=== PATIENT | female | born 1950 | race Caucasian/White ===

== ENCOUNTER 2017-08-18 14:25 | Observation (INO) | payer OTHER ==
[2017-08-18] MEDS: D5 0.9 NS 1,000 ML IV SCH (16:00)
[2017-08-18 16:08] LABS: Potassium 3.6 mEq/L (3.6-5.0)
[2017-08-18 16:09] LABS: Absolute Lymphocytes (CBC) 4.1 K/uL (0.7-4.9); Absolute Monocytes 0.9 K/uL (0.1-1.3); Absolute Neutrophil 7.4 K/uL (1.8-8.0); Basophils % 0.7 % (0-1.3); Eosinophils % 7.7 % (0-4.4); Hematocrit 40.2 % (36.0-45.0); Lymphocytes % 30.3 % (15.3-44.8); MCH 30.7 pg (27.0-35.0); MCV 93.3 fL (80-100); Monocytes % 6.8 % (3.3-12.3); RBC Red Blood Cell Count 4.31 M/uL (3.86-4.86)
[2017-08-18 17:12] VITALS: BMI 35.9
[2017-08-18] MEDS ORDERED: NA CHLORIDE 0.9% 1,000 ML ONE (17:38)
[2017-08-18] MEDS: NA CHLORIDE 0.9% 1,000 ML IV SCH (18:35)
[2017-08-18] MEDS: METRONIDAZOLE 500mg IVPB 500 MG/100 ML BAG IV SCH (18:35)
[2017-08-18] MEDS ORDERED: ATORVASTATIN PO SCH (21:00)
[2017-08-18] MEDS ORDERED: AMLODIPINE PO SCH (21:00)
[2017-08-18] MEDS ORDERED: HOME MED 1 EA UNK (Metoprolol Tartrate [Lopressor] 100 MG) PO SCH (21:00)
[2017-08-18] MEDS: TORSEMIDE 20 MG TAB PO SCH (21:37)
[2017-08-18] MEDS: METOPROLOL TAR 50 MG TAB PO SCH (21:38)
[2017-08-18] MEDS: Ciprofloxacin 200mg IV 200 MG/100 ML IV.SOLN. IV SCH (21:41)
[2017-08-19] MEDS: METRONIDAZOLE 500mg IVPB 500 MG/100 ML BAG IV SCH ×3 (01:03→17:04)
[2017-08-19] MEDS: D5 0.9 NS 1,000 ML IV SCH ×2 (02:36→14:14)
[2017-08-19] MEDS: NA CHLORIDE 0.9% 1,000 ML IV SCH ×2 (05:23→16:14)
[2017-08-19 05:54] LABS: Absolute Lymphocytes (CBC) 2.9 K/uL (0.7-4.9); Absolute Monocytes 0.7 K/uL (0.1-1.3); Absolute Neutrophil 10.3 K/uL (1.8-8.0); Basophils % 0.7 % (0-1.3); Eosinophils % 6.3 % (0-4.4); Hematocrit 40.4 % (36.0-45.0); Lymphocytes % 19.5 % (15.3-44.8); MCH 30.8 pg (27.0-35.0); MPV 8.2 fL (7.6-11.3); Monocytes % 4.9 % (3.3-12.3); RBC Red Blood Cell Count 4.34 M/uL (3.86-4.86)
[2017-08-19] MEDS ORDERED: LEVOTHYROXINE SOD 0.112 MG TAB PO SCH (06:00)
[2017-08-19] MEDS ORDERED: HOME MED 1 EA UNK (Canagliflozin [Invokana] 300 MG) PO SCH (09:00)
[2017-08-19] MEDS ORDERED: LEVOTHYROXINE SODIUM 112 MCG PO SCH (09:00)
[2017-08-19] MEDS ORDERED: [UNRECOGNIZED DRUG - OTHER] PO SCH (09:00)
[2017-08-19] MEDS ORDERED: VIT D3 PO SCH (09:00)
[2017-08-19] MEDS ORDERED: INSULIN DEGLUDEC 74 UNIT SQ SCH (09:00)
[2017-08-19] MEDS ORDERED: B2 PO SCH (09:00)
[2017-08-19] MEDS ORDERED: FOLIC ACID PO SCH (09:00)
[2017-08-19] MEDS ORDERED: B6 PO SCH (09:00)
[2017-08-19] MEDS ORDERED: B12 PO SCH (09:00)
[2017-08-19] MEDS: Ciprofloxacin 200mg IV 200 MG/100 ML IV.SOLN. IV SCH (09:10)
[2017-08-19] MEDS: TORSEMIDE 20 MG TAB PO SCH (09:10)
[2017-08-19] MEDS: METOPROLOL TAR 50 MG TAB PO SCH (09:11)
[2017-08-19 11:52] VITALS: TEMP 98.1
[2017-08-19 12:05] VITALS: O2SAT 94
[2017-08-19 16:08] VITALS: BP 140/81
--- NOTE | 2017-08-20 16:46 | HP ---
Date of Admission: 08/18/2017 Chief Complaint: Observation for complications following difficult colonoscopy and biopsy. History Of Present Illness: The patient went for a routine colonoscopy, which she has not had in the past. During this procedure, she was noted to have multiple polyps including one extremely large po lyp, which was taken out in therefore she was admitted by Gastroenterology, suggestion to follow her H and H due to the procedure. She is basically asymptomatic. Past Medical History: The patient has a long history of IDDM, difficult to control, although as late she said she has been on fairly good control. Family History: Noncontributory. Social History: Nonsmoker, nondrinker. Physical Examination: General: The patient , moderately obese, elderly female. Vital Signs: Stable. Head And Neck: Normocephalic. Pupils equal, reactive to light and accommodation. Fundi negative. T rachea midline. Thyroid not palpable. ENT: Negative. Chest: Clear to P and A. Breasts: Pendulous, negative. Cardiovascular: PMI midclavicular line. Heart sounds normal. Peripheral pulses are present and equ al bilaterally. Abdomen: No organomegaly. Bowel sounds present. No tenderness. Extremities: Slightly dehydrated. Good tone and movement bilaterally. Reflexes physiologic. Rectal And Pelvic: Deferred. Impression: Observation following difficult colonoscopy and biopsy. Plan: The patient will be admitted for serial H and H due to the complexity of the biopsy. If there was no change in her level, she could be discharged after 24 hours. She will be gradually increased as far as her diet intake will be discussed with the display department manager. /ASTRID Voice ID: [id number]
--- NOTE | 2017-08-20 16:46 | PN ---
Date of Progress Note: 08/19/2017 The patient is basically asymptomatic, not had a bowel movement. Her blood work including a CBC is n ormal. She is hypokalemic, undoubtedly due to the cleansing process. In fact, she had been on potas sium medication like she is at home . She will be discharged to continue on her usual medi cation make sure she takes her potassium and follow up next week with Gastroenterology, wi th myself for general condition. Seen by Gastroenterology as well. Discharged in good condition. HR/MODL Voice ID: [id number] Report ID: [id number]
--- NOTE | 2017-10-19 05:34 | DS ---
Date of Discharge: 08/19/2017 Hospital Course: The patient is admitted to the hospital on 08/18 following a difficult colonoscopy at which time a large polyp was removed in numerous portions. She had some bleeding, however, seemed to be under control. However, due to the difficulty of the procedure, the mobile electronics installer felt i t to be zuñiga to keep her n.p.o., monitor her H and H, this was done. She was placed on IV fluids. S he kept n.p.o. originally and gradually her diet was increased, which she tolerated well. Her H and H did not drop. She was stable throughout. She had hypokalemia; however, she had been off her potas sium and this is felt to be secondary to cleansing procedure. She felt well enough to be discharged to follow up with myself and gastroenterology in good condition on 08/20. Final Diagnosis: Post polyp removal colonoscopy, hypokalemia. HR/MODL Voice ID: [id number] Report ID: [id number]
== END 2017-08-19 18:15 | disposition home or self-care (01) ==
LOC: 4TH 15:09
PROVIDERS: ADMIT Family Medicine; ATTEND Family Medicine
DX: Z04.8 Encounter for examination and observation for other specified reasons (principal); E11.9 Type 2 diabetes mellitus without complications; E66.9 Obesity, unspecified; Z68.36 Body mass index [BMI] 36.0-36.9, adult
CPT/HCPCS: 36415; 80048 ×2; 82962 ×4; 85014; 85018; 85025 ×2; G0378; G0379; J0744 ×2; J7030 ×2

== ENCOUNTER 2017-11-27 11:28 | Day surgery (SDC) | payer OTHER ==
[2017-11-27] MEDS ORDERED: NA CHLORIDE 0.9% 1,000 ML ONE (11:38)
[2017-11-27] MEDS ORDERED: LIDOCAINE 1% W/EPI 1:100,000 MDV 50 ML VIAL ONE (12:49)
[2017-11-27] MEDS ORDERED: PROPOFOL 200 MG/20 ML VIAL IV ONE (12:52)
[2017-11-27] MEDS ORDERED: GLYCOPYRROLATE 0.2 MG/ML SYR ONE (12:52)
[2017-11-27] MEDS ORDERED: DEXAMETHASONE 10 MG/ML VIAL ONE (12:53)
[2017-11-27] MEDS ORDERED: LIDOCAINE 1% MPF 5 ML VIAL ONE (12:53)
[2017-11-27] MEDS ORDERED: FENTANYL CITR 250 MCG/5 ML ONE (12:54)
[2017-11-27] MEDS ORDERED: ONDANSETRON HCL 40 MG/20 ML VIAL ONE ×2 (12:54→13:32)
[2017-11-27] MEDS ORDERED: NEOSTIGMINE 1 MG/ML -5 ML SYRINGE ONE (12:54)
[2017-11-27] MEDS ORDERED: ROCURONIUM 50 MG/5 ML VIAL IV ONE (12:54)
[2017-11-27] MEDS ORDERED: MIDAZOLAM HCL 2 MG/2 ML INJ ONE (12:55)
--- NOTE | 2017-11-27 14:53 | P.BOP ---
Preoperative diagnosis: left parotid mass, indeterminate behavior on FNA Postoperative diagnosis: left deep lobe parotid mass Primary procedure: left parotidectomy with facial nerve dissection Graphic Design Assistant: ROMERO MILES Estimated blood loss: 10ml Specimen: superior lobe - true margin inked, deep parotid mass true deep margin inked Anesthesia: General Complications: None Drain(s): ROLANDA drain Implants: none Fluids & blood products: crystalloid 700ml Transferred to: Recovery Room Condition: Good
[2017-11-27] MEDS ORDERED: PROMETHAZINE 25 MG/ML VIAL ONE (15:18)
[2017-11-27] MEDS ORDERED: MEPERIDINE HCL 50 MG/ML AMP ONE (15:25)
[2017-11-27] MEDS ORDERED: ONDANSETRON 4 MG/2 ML VIAL ONE (15:33)
[2017-11-27] MEDS ORDERED: METOCLOPRAMIDE 10 MG/2mL INJ ONE (15:39)
[2017-11-27 17:36] VITALS: BP 134/63; TEMP 97.1; O2SAT 100
--- NOTE | 2017-12-01 17:35 | OP ---
Date of Procedure: 11/27/2017 Surgeon: Annalee Deluna MD Preoperative Diagnosis: Left parotid mass. Postoperative Diagnoses: Left deep parotid mass. Procedure: Left parotidectomy with facial nerve dissection. Indication For Procedure: Mrs. Thornton presented to the clinic with a palpable left parotid mass co nfirmed with CT and ultrasound ordered by her primary care physician. A fine-needle aspiration was p erformed in the clinic and revealed an indeterminate pathology due to the concern for malignancy. Th e risks, benefits, and alternatives to parotidectomy were discussed with the patient, who agreed to p roceed. Description Of Procedure: The patient was brought to the operating room. She was placed under gener al anesthesia via oral endotracheal tube. A shoulder roll was placed. The neck was extended and the head was turned to the right for exposure of the left face and neck. The planned incision site was injected with local anesthetic and the face was prepped and draped in the standard sterile fashion wi th Betadine. A standard parotidectomy incision was made in the left preauricular region extending to the upper part of the left neck. A scalpel was used to incise through the skin and subcutaneous tis sues and a Bovie electrocautery was used to elevate a sub-SMAS flap. The flap was retracted and secu red to the drapes using silk suture; posteriorly, the earlobe and the skin flap was elevated and a núñez ture was used to secure the earlobe to the drapes to aid in retraction. The posterior and inferior a spect of the parotid gland were identified and carefully dissected. Careful dissection in the region of the tragal pointer was performed and careful dissection allowed identification of the facial nerv e. During elevation of tissues over the facial nerve, it was noted by visual and tactile inspection that the mass of interest was deep to the facial nerve. The superficial parotid tissue was elevated off the facial nerve and from the specimen. The true superficial margin was marked with in k. The facial nerve was then carefully mobilized from the mass. There was a branch going into the m ass and due to concern for malignancy, this branch was sacrificed in order to allow complete removal of the tumor and avoid dissection into the tumor itself. Once the branches of the facial nerve were mobilized, further dissection around the tumor, including a cuff of normal-appearing parotid tissue w as undertaken and the mass was released from its final tissue attachments. The true deep margin was marked with ink and the 2 specimens were sent to Pathology for permanent section. The surgical bed w as thoroughly irrigated. The area was noted to be hemostatic. A 10-Portuguese round ROLANDA drain was placed within the surgical bed and the incision was closed in a layered fashion using 4-0 Vicryl sutures an d 5-0 running nylon. The drain was secured to the skin with a 3-0 nylon suture. The skin was cleane d and dried, and the patient was returned to care of anesthesia for awakening and extubation in the o perating room, which proceeded without difficulty. Disposition: The patient will return to Dr. Deluna's office on postoperative day 3 for removal of J P drain due to high risk of facial nerve dysfunction due to dissection, immobilization. The patient will be placed on eye precautions including lubricant taping at night and natural tears and be monito red carefully for improvement. AISHA/ASTRID Voice ID: [id number] Report ID: [id number]
== END 2017-11-27 17:46 | disposition home or self-care (01) ==
LOC: OR 11:28
PROVIDERS: ATTEND Otolaryngology
PROC: 00BM0ZZ Excision of Facial Nerve, Open Approach (ICD-10-PCS; 2017-11-27)
PROC: 0CTC0ZZ Resection of Left Parotid Duct, Open Approach (ICD-10-PCS; principal; 2017-11-27 13:15)
DX: C07 Malignant neoplasm of parotid gland (principal); K11.9 Disease of salivary gland, unspecified; E11.9 Type 2 diabetes mellitus without complications; Z79.4 Long term (current) use of insulin; Z79.84 Long term (current) use of oral hypoglycemic drugs; I10 Essential (primary) hypertension; B02.9 Zoster without complications; K52.9 Noninfective gastroenteritis and colitis, unspecified
CPT/HCPCS: 42420; 82962 ×2; 88307; J1100; J2175; J2250; J2405 ×3; J2550; J2710; J2765; J7030

== ENCOUNTER 2023-05-07 15:30 | Day surgery (SDC) | payer OTHER ==
--- NOTE | 2023-05-05 15:40 | RAD REPORT ---
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 COMPARISON: <Comparisons> FINDINGS: The lungs are clear. The heart is normal in size. No displaced fractures. IMPRESSION: No acute or concerning finding suspected.
[2023-05-05 15:53] LABS: Absolute Lymphocytes (CBC) 3.8 K/uL (0.7-4.9); Hematocrit 42.7 % (36.0-45.0); Lymphocytes % 33.5 % (15.3-44.8); MCV 96.7 fL (80-100); MPV 8.3 fL (7.6-11.3); Platelets 203 thou/uL (152-406); RBC Red Blood Cell Count 4.42 M/uL (3.86-4.86)
[2023-05-05 15:57] LABS: Protime INR 0.93
[2023-05-05 16:03] LABS: Potassium 4.1 mEq/L (3.5-5.1)
--- NOTE | 2023-05-06 17:25 | EKG ---
Test Date: 2023-05-05 Test Time: 16:23:26 Lyric Writer: EMIR MEASUREMENT RESULTS: Intervals: Rate: 71 ND: 198 QRSD: 186 QT: 460 QTc: 499 [place]: P: 29 ND: 198 QRS: -28 T: 94 INTERPRETIVE STATEMENTS: Normal sinus rhythm Left bundle branch block Abnormal ECG Compared to ECG 06/07/2016 10:01:22 Left-axis deviation no longer present Electronically Signed On 05-06-23 17:23:13 BRUSHER TENDER by Luis Grande
[2023-05-07] MEDS ORDERED: NA CHLORIDE 0.9% 500 ML ONE (16:02)
[2023-05-07] MEDS ORDERED: HEPA 1000U/500MLS 2,000 UNIT/1,000 ML BAG IV ONE (17:11)
[2023-05-07] MEDS ORDERED: HEPARIN 5000 UNIT/ML 1 ML VIAL ONE (17:11)
[2023-05-07] MEDS ORDERED: HEPARIN 10,000 UNIT/10 ML VIAL IV ONE (17:12)
[2023-05-07] MEDS ORDERED: LIDOCAINE 1% 20 ML MDV ONE (17:12)
[2023-05-07] MEDS ORDERED: ATROPINE SULF 1 MG/10 ML SYR IV ONE (17:13)
[2023-05-07] MEDS ORDERED: VERAPAMIL HCL 10 MG/4 ML VIAL IV ONE (17:13)
[2023-05-07] MEDS ORDERED: MIDAZOLAM HCL 2 MG/2 ML INJ ONE (17:13)
[2023-05-07] MEDS ORDERED: FENTANYL CITR 100 MCG/2 ML ONE (17:14)
[2023-05-07] MEDS ORDERED: TICAGRELOR 90 MG TABLET PO ONE (17:26)
[2023-05-07] MEDS ORDERED: CLOPIDOGREL 75 MG TABLET ONE (17:27)
[2023-05-07] MEDS ORDERED: ASPIRIN 325 MG TAB ONE (17:27)
[2023-05-07] MEDS ORDERED: Phenylephrine HCl 10 MG/ML 1 ML VIAL ONE (17:54)
[2023-05-07 19:55] VITALS: BP 129/67
[2023-05-07 20:07] VITALS: O2SAT 99
== END 2023-05-07 20:21 | disposition home or self-care (01) ==
LOC: CCL 15:30
PROVIDERS: ATTEND Internal Medicine
DX: I11.0 Hypertensive heart disease with heart failure (principal); I50.22 Chronic systolic (congestive) heart failure; I25.10 Atherosclerotic heart disease of native coronary artery without angina pectoris; I34.0 Nonrheumatic mitral (valve) insufficiency; I67.9 Cerebrovascular disease, unspecified; E78.2 Mixed hyperlipidemia; E11.9 Type 2 diabetes mellitus without complications; Z79.82 Long term (current) use of aspirin; Z79.85 Long-term (current) use of injectable non-insulin antidiabetic drugs; Z79.4 Long term (current) use of insulin; Z79.899 Other long term (current) drug therapy
CPT/HCPCS: 93005; 85025; 80048; 36415; 85610; 82947; 85730; 71046; 93458; 76937; C1893; Q9966; J1644; J2001; J2371; J2250; J3010; J7040; 99152; 99153; J0461